=== PATIENT | male | born 1980 | race Caucasian/White ===

== ENCOUNTER 2018-06-18 22:13 | Emergency (ER) | payer MEDICARE, OTHER, MEDICAID ==
[2018-06-19] MEDS: DEXAMETHASONE 10 MG/ML 1 ML INJ IM (02:17)
[2018-06-19] MEDS: IBUPROFEN 800 MG TAB PO (02:17)
== END 2018-06-19 02:46 | disposition home or self-care (01) ==
LOC: FTE 22:13
DX: J02.9 Acute pharyngitis, unspecified (principal)
CPT/HCPCS: 96372; 99284-25

== ENCOUNTER 2018-09-19 03:53 | Emergency (ER) | payer OTHER, MEDICARE ==
[2018-09-19] MEDS: LORAZEPAM 2 MG INJ IM (04:05)
== END 2018-09-19 04:42 ==
LOC: E/R 03:53
DX: Z02.89 Encounter for other administrative examinations (principal)
CPT/HCPCS: 93005; 96372; 99284-25